=== PATIENT | male | born 1950 | race Caucasian/White ===

== ENCOUNTER → 2016-03-15 | Outpatient (CLI) | payer MEDICARE, OTHER ==
--- NOTE | 2016-03-16 08:57 | RADRPT ---
Echocardiogram Report Patient Name: JENNIFER STERLING Gender: Male Date: 1950 Study Date: 15-Mar-2016 Clean Up Worker: Ac Coelho RDCS Location: EKG Ref. Physician: MIRANDA TAN Quality: Good Procedures: Transthoracic echocardiogram with complete 2D, M-Mode, and doppler examination. Indications: Chest Pain. 2D/M Mode Doppler Measurement Value Normal Ranges Measurement Value Normal Ranges LVIDd 2D 4.8 3.5 - 5.6 cm AV Peak Carlton 1.3 m/sec LVIDs 2D 2.0 2.1 - 4.1 cm AV Peak PG 7.1 mmHg LVPWd 2D 0.7 0.6 - 1.1 cm LVOT Peak Carlton 1.3 m/sec IVSd 2D 0.9 0.6 - 1.1 cm LVOT Peak PG 6.9 mmHg AoR Diam 2D 2.9 2.0 - 3.7 cm MV E Peak Carlton 0.6 m/sec EDV 2D 109.5 cm3 MV A Peak Carlton 0.7 m/sec ESV 2D 8.0 cm3 MV E/A 0.8 LA Dimen 2D 3.9 2.3 - 4.0 cm MV Decel Time 211 msec MV Decel Ponce 3 MV E/A 0.8 TR Peak Carlton 2.6 m/sec TR Peak PG 27.7 mmHg RVSP 31.0 mmHg Findings Left Ventricle: Normal left ventricular systolic function. Normal left ventricular cavity size. Normal left ventricular wall thickness. Ejection fraction is visually estimated at 65 %. Tissue Doppler/Mitral Doppler indices are consistent with impaired relaxation (Stage I diastolic dysfunction). Right Ventricle: Normal right ventricular size. Normal right ventricular systolic function. Left Atrium: The left atrium is normal in size. Right Atrium: The right atrium is normal in size. Mitral Valve: Mitral valve leaflets appear mildly thickened. Mild mitral annular calcification. Mild mitral valve regurgitation. Aortic Valve: Normal appearance of the aortic valve. No significant aortic stenosis or insufficiency. Tricuspid Valve: Normal appearance of the tricuspid valve. Estimated peak PA systolic pressure 31 mmHg. There is mild tricuspid regurgitation. Pericardium: Normal pericardium with no significant pericardial effusion. Aorta: Normal aortic root. IVC: Normal size and normal respiratory collapse consistent with normal right atrial pressure. Conclusions Normal left ventricular systolic function. Normal left ventricular cavity size. Normal left ventricular wall thickness. Ejection fraction is visually estimated at 65 %. Tissue Doppler/Mitral Doppler indices are consistent with impaired relaxation (Stage I diastolic dysfunction). Normal right ventricular size. Normal right ventricular systolic function. Mitral valve leaflets appear mildly thickened. Mild mitral annular calcification. Mild mitral valve regurgitation. Normal appearance of the aortic valve. No significant aortic stenosis or insufficiency. Normal appearance of the tricuspid valve. Estimated peak PA systolic pressure 31 mmHg. There is mild tricuspid regurgitation. Normal pericardium with no significant pericardial effusion. Electronically Signed By: Nagi Vu 16-Mar-2016 08:57:28 -0800 Patient Name: JENNIFER STERLING Study Date: 15-Mar-2016 [id number]
== END | disposition home or self-care (01) ==
LOC: EKG 13:56
PROVIDERS: ATTEND Internal Medicine
DX: R07.9 Chest pain, unspecified (principal)
CPT/HCPCS: 93306